=== PATIENT | female | born 1990 | race Caucasian/White ===

== ENCOUNTER 2019-03-05 16:39 | Inpatient (IN) | payer MEDICAID, OTHER ==
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
[2019-03-06] MEDS: PRENATAL VIT-IRON-FOLIC ACID 1 EACH CAP PO SCH (10:26)
[2019-03-06] MEDS: NITROFURANTOIN MONOHYD/M-CRYST 100 MG CAP PO SCH ×2 (10:26→21:29)
--- NOTE | 2019-03-06 11:38 | US ---
EXAMINATION TYPE: US venous doppler duplex LE LT DATE OF EXAM: 03/06/2019 11:24 AM COMPARISON: NONE CLINICAL HISTORY: pain. Pain and edema left leg for 4-5 days SIDE PERFORMED: left TECHNIQUE: The lower extremity deep venous system is examined utilizing real time linear array sonog christa with graded compression, doppler sonography and color-flow sonography. VESSELS IMAGED: External Iliac Vein (EIV) Common Femoral Vein Deep Femoral Vein Greater Saphenous Vein * Femoral Vein Popliteal Vein Small Saphenous Vein * Proximal Calf Veins (* superficial vessels) Grayscale, color doppler, spectral doppler imaging performed of the deep veins of the left lower extr emity. There is normal flow, compressibility, vascular waveforms. Left Leg: No evidence of DVT IMPRESSION: No sonographic evidence of deep venous thrombosis within the left lower extremity.
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
[2019-03-06] MEDS: risperiDONE 0.5 MG TAB PO SCH ×2 (12:16→21:30)
[2019-03-06] MEDS: ACETAMINOPHEN TAB 325 MG TAB PO PRN ×2 (14:37→21:30)
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
[2019-03-07] MEDS: PRENATAL VIT-IRON-FOLIC ACID 1 EACH CAP PO SCH (09:21)
[2019-03-07] MEDS: NITROFURANTOIN MONOHYD/M-CRYST 100 MG CAP PO SCH ×2 (09:21→21:27)
[2019-03-07] MEDS: risperiDONE 0.5 MG TAB PO SCH ×2 (09:21→21:27)
[2019-03-07] MEDS: ACETAMINOPHEN TAB 325 MG TAB PO PRN (09:22)
[2019-03-07 11:21] LABS: Cholesterol 138 mg/dL (<200); HDL Cholesterol 44 mg/dL (40-60); LDL Cholesterol,Calculated 60 mg/dL (0-99); Triglycerides 169 mg/dL (<150)
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
[2019-03-07 14:17] LABS: Amorphous Sediment,Urine Occasional /hpf; Appearance,Urine Cloudy (Clear); Bilirubin,Urine Negative (Negative); Blood,Urine Trace (Negative); Color,Urine Dark Brown; Glucose,Urine (UA) Negative (Negative); Ketones,Urine Negative (Negative); Leukocyte Esterase,Urine Negative (Negative); Mucus,Urine Many /hpf; Nitrite,Urine Negative (Negative); Protein,Urine 1+ (Negative); RBC,Urine 2 /hpf (0-5); Specific Gravity,Urine 1.025 (1.001-1.035); Squamous Epithelial Cell,Urine 13 /hpf (0-4); Urobilinogen,Urine <2.0 mg/dL (<2.0); WBC,Urine 7 /hpf (0-5)
[2019-03-07 14:18] LABS: Amphetamine Screen,Urine Not Detected (NotDetected); Barbiturate Screen,Urine Not Detected (NotDetected); Benzodiazepines Screen,Urine Detected (NotDetected); Cocaine Screen,Urine Not Detected (NotDetected); Methadone Screen, Urine Not Detected (NotDetected); Opiate Screen,Urine Not Detected (NotDetected); Oxycodone Screen, Urine Not Detected (NotDetected); Phencyclidine Screen,Urine Not Detected (NotDetected); Tricyclic Antidepressant,Urine Not Detected (NotDetected); Urn Cannabinoid Scrn Detected (NotDetected)
[2019-03-07 16:45] LABS: Hepatitis B Surface Antigen Non-Reactive (Non-Reactive)
[2019-03-07 17:46] LABS: HIV 1 AB Non-Reactive (Non-Reactive); HIV 2 AB Non-Reactive (Non-Reactive); HIV AB P24 Non-Reactive (Non-Reactive); HIV P24 AG Non-Reactive (Non-Reactive)
[2019-03-07 18:19] LABS: Hemoglobin A1C 4.8 % (4.0-6.0)
[2019-03-08] MEDS: PRENATAL VIT-IRON-FOLIC ACID 1 EACH CAP PO SCH (08:39)
[2019-03-08] MEDS: NITROFURANTOIN MONOHYD/M-CRYST 100 MG CAP PO SCH ×2 (08:39→20:50)
[2019-03-08] MEDS: risperiDONE 0.5 MG TAB PO SCH (08:40)
[2019-03-08] MEDS: ACETAMINOPHEN TAB 325 MG TAB PO PRN (08:40)
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
[2019-03-08] MEDS: SIMETHICONE 80 MG CHEWABLE PO PRN (13:35)
[2019-03-08] MEDS: risperiDONE 1 MG TAB PO SCH (20:50)
[2019-03-08 22:29] VITALS: BMI 22.6
[2019-03-09] MEDS: PRENATAL VIT-IRON-FOLIC ACID 1 EACH CAP PO SCH (07:55)
[2019-03-09] MEDS: NITROFURANTOIN MONOHYD/M-CRYST 100 MG CAP PO SCH ×2 (07:55→20:55)
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
[2019-03-09] MEDS: risperiDONE 1 MG TAB PO SCH (20:55)
[2019-03-10] MEDS: NITROFURANTOIN MONOHYD/M-CRYST 100 MG CAP PO SCH ×2 (09:01→20:47)
[2019-03-10] MEDS: PRENATAL VIT-IRON-FOLIC ACID 1 EACH CAP PO SCH (09:01)
[2019-03-10] MEDS: ONDANSETRON 4 MG TAB PO PRN (09:02)
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
[2019-03-10] MEDS: ACETAMINOPHEN TAB 325 MG TAB PO PRN ×3 (13:11→22:47)
[2019-03-10] MEDS: SIMETHICONE 80 MG CHEWABLE PO PRN (17:36)
[2019-03-10] MEDS: risperiDONE 1 MG TAB PO SCH (20:47)
[2019-03-11 06:59] VITALS: BP 123/59; PULSE 79; RESP 16; TEMP 98.8
[2019-03-11] MEDS: PRENATAL VIT-IRON-FOLIC ACID 1 EACH CAP PO SCH (08:53)
[2019-03-11] MEDS: NITROFURANTOIN MONOHYD/M-CRYST 100 MG CAP PO SCH (08:53)
[2019-03-11] MEDS: ACETAMINOPHEN TAB 325 MG TAB PO PRN (08:55)
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
[2019-03-11] MEDS: ONDANSETRON 4 MG TAB PO PRN (10:29)
== END 2019-03-11 14:44 | disposition home or self-care (01) | DRG 833 ==
LOC: 3MHU 20:59
PROVIDERS: ADMIT Psychiatry & Neurology Psychiatry; ATTEND Psychiatry & Neurology Psychiatry
DX: O99.341 Other mental disorders complicating pregnancy, first trimester (principal); F20.9 Schizophrenia, unspecified; O21.0 Mild hyperemesis gravidarum; Z59.0 Homelessness; Z3A.01 Less than 8 weeks gestation of pregnancy; Z79.899 Other long term (current) drug therapy; O03.9 Complete or unspecified spontaneous abortion without complication; S05.10XA Contusion of eyeball and orbital tissues, unspecified eye, initial encounter; S80.12XA Contusion of left lower leg, initial encounter; Y09 Assault by unspecified means; M25.562 Pain in left knee; Z87.891 Personal history of nicotine dependence; F10.10 Alcohol abuse, uncomplicated; Z71.41 Alcohol abuse counseling and surveillance of alcoholic; Z71.51 Drug abuse counseling and surveillance of drug abuser
CPT/HCPCS: 80061; 80306; 81001; 83036; 84702; 86762; 86780; 86850; 86900; 86901; 87340; 87390